=== PATIENT | female | born 1965 | race Caucasian/White ===

== ENCOUNTER 2021-11-24 18:47 | Inpatient (IN) | payer MEDICAID, OTHER ==
[~2021-11-24] VITALS: Ht 180.3 cm; Wt 107.0 kg
[2021-11-24] MEDS ORDERED: IV NS 0.9% 1,000 ML BAG IV ONE (19:30)
[2021-11-24] MEDS ORDERED: ONDANSETRON HCL/PF 4 MG/2 ML VIAL IVP ONE (19:30)
[2021-11-24 20:01] LABS: CALCIUM, SERUM 10.3 mg/dL (8.5-10.1); CARBON DIOXIDE 12 mmol/L (21-32); CHLORIDE 90 mmol/L (98-107); GLUCOSE 340 mg/dL (74-106); SODIUM SERUM 138 mmol/L (136-145); UREA NITROGEN, BLOOD 69 mg/dL (7-18)
[2021-11-24 20:06] LABS: CREATININE 9.4 mg/dL (0.6-1.3); POTASSIUM 2.7 mmol/L (3.5-5.1)
--- NOTE | 2021-11-24 20:06 | NUR ---
K 2.7
--- NOTE | 2021-11-24 20:09 | NUR ---
TROPONIN 89; DR. SANJAY WILHELM AWARE
--- NOTE | 2021-11-24 20:11 | NUR ---
URINE COLLECTED SENT TO LAB
[2021-11-24 20:12] LABS: ALANINE AMINOTRANSFERASE 53 U/L (12-78); ALBUMIN 4.2 g/dL (3.4-5.0); ALKALINE PHOSPHATASE 66 U/L (46-116); ASPARTATE AMINOTRANSFERASE 57 U/L (15-37); BILIRUBIN,DIRECT 0.2 mg/dL (0.0-0.2); BILIRUBIN,TOTAL 0.6 mg/dL (0.2-1.0); LIPASE 437 U/L (73-393)
[2021-11-24 20:21] LABS: BASOPHILS % (AUTO) 0.2 % (0.0-2.0); EOSINOPHILS % (AUTO) 0.3 % (0.0-6.0); HEMATOCRIT 47 % (33-45); HEMOGLOBIN 15.3 g/dL (11.5-14.8); LYMPHOCYTES # (AUTO) 1.8 K/uL (0.8-4.8); LYMPHOCYTES % (AUTO) 10.4 % (20.0-44.0); MEAN CORPUSCULAR HGB CONC 32 g/dl (31.0-36.0); MEAN CORPUSCULAR VOLUME 93 fL (82-100); MONOCYTES # (AUTO) 0.9 K/uL (0.1-1.30); MONOCYTES % (AUTO) 5.3 % (2.0-12.0); NEUTROPHILS # (AUTO) 14.9 K/uL (1.8-8.9); NEUTROPHILS % (AUTO) 83.8 % (43.0-81.0); PLATELET COUNT (AUTO) 330 K/uL (150-450); RED BLOOD CELL COUNT(AUTO) 5.11 MIL/uL (4.0-5.2); WHITE BLOOD COUNT (AUTO) 17.8 K/uL (4.3-11.0)
--- NOTE | 2021-11-24 20:23 | NUR ---
LACTIC 15.5
[2021-11-24 20:36] LABS: BILIRUBIN,URINE NEGATIVE (NEGATIVE); COLOR,URINE YELLOW (YELLOW); LEUKOCYTE ESTERASE ,URINE NEGATIVE (NEGATIVE); NITRITE, URINE NEGATIVE (NEGATIVE); PH,URINE 7.5 (5.0-8.0); PROTEIN,URINE NEGATIVE (NEGATIVE); UGLUCOSE NEGATIVE (NEGATIVE); UROBILINOGEN,URINE 0.2 EU/dL (0.2)
[2021-11-24] MEDS ORDERED: ONDANSETRON HCL/PF 4 MG/2 ML VIAL ONE (20:36)
[2021-11-24] MEDS ORDERED: POTASSIUM CHLORIDE 20 MEQ TAB.PRT.SR PO ONE (21:00)
[2021-11-24] MEDS: POTASSIUM CL. PREMIX PERIPHER. 50 ML IV SCH ×3 (21:01→23:53)
[2021-11-24] MEDS ORDERED: LISI20TA30 PO (21:16)
[2021-11-24] MEDS ORDERED: AMLO-212 PO (21:16)
[2021-11-24 21:17] LABS: CREATININE, URINE 116.1 MG/DL (30.0-125.0)
[2021-11-24 21:23] LABS: MAGNESIUM 4.3 mg/dL (1.8-2.4); PHOSPHORUS 8.8 mg/dL (2.5-4.9)
--- NOTE | 2021-11-24 21:37 | NUR ---
US AT BEDSIDE
--- NOTE | 2021-11-24 22:11 | NUR ---
SISTER, DENNIS [phone]
--- NOTE | 2021-11-24 22:18 | NUR ---
KIMBERLEY ON THE PHONE WITH FABIEN SHARPE
--- NOTE | 2021-11-24 23:03 | NUR ---
PER [employer] VERBAL AUTH TO DR ROYAL
[2021-11-24] MEDS ORDERED: POTASSIUM CL. PREMIX PERIPHER. 50 ML ONE (23:47)
[2021-11-25] VITALS (23 sets, daily range): BP systolic 80–128; BP diastolic 38–81
--- NOTE | 2021-11-25 00:15 | NUR ---
RN NOTES; PATIENT RECEIVED FROM ER WITH ROYAL IN RM 320-1,AAOX4 WITH 2L O2 VIA NC MALLORY WELL SATTING 97%,NO SIGN SOB/DISTRESS NOTED.BREATHING EVEN AND UNLABORE,NO COMPLAINED OF PAIN/DISCOMFORT AT THIS TIMES.IV ACCESS LEFT WRIST 18G PATENT AND INTACT,NO SWOLLEN/BLEEDING NOTED.PT WAS ORIENT THE RM AND VERBALIZE UNDERSTANDING.KEPT PT CLEANED AND DRY ALL TIME.SAFETY MEASURED INPLACE,CALL LIGHT WITHIN REACH.WILL CONTINUE TO MONITOR.
--- NOTE | 2021-11-25 00:24 | NUR ---
REPORT GIVEN TO COLTEN GRANT
[2021-11-25] MEDS ORDERED: POTASSIUM CL. PREMIX PERIPHER. 50 ML ONE (00:26)
--- NOTE | 2021-11-25 00:53 | NUR ---
PATIENT TRANSFERRED UNDER ACLS
[2021-11-25] MEDS: POTASSIUM CL. PREMIX PERIPHER. 50 ML IV SCH (01:04)
[2021-11-25] MEDS ORDERED: AMLO-212 PO (01:12)
[2021-11-25] MEDS ORDERED: ZOLPIDEM TARTRATE 5 MG TABLET PO PRN (04:30)
[2021-11-25] MEDS ORDERED: DEXTROSE 50%-WATER 50 ML DISP.SYRIN IV PRN (04:30)
[2021-11-25] MEDS ORDERED: *INSULIN REGULAR(HUMULIN R)HUM 100 UNIT/ML VIAL SQ PRN (04:30)
[2021-11-25] MEDS: ACETAMINOPHEN 325 MG TABLET PO PRN ×2 (04:42→10:37)
[2021-11-25] MEDS ORDERED: Potassium Chloride 10 MEQ in IV NS 0.9% 1,000 ML IV PRN (05:00)
--- NOTE | 2021-11-25 05:09 | NUR ---
RN NOTES; I TEXTED ZACH,GENNY REGARDING HIS ORDERED IVF NS + KCL 10MEQ @125ML/HR THAT IS NOT AVAILABLE ONLY AVAILABLE NS + KCL 20MEQ AND HE TEXTED BACK OK TO CHANGE.
[2021-11-25] MEDS ORDERED: Potassium Chloride 20 MEQ in IV NS 0.9% 1,000 ML IV PRN (05:30)
[2021-11-25] MEDS ORDERED: IV PREMIX NS +20MEQ KCL 1 L IV ONE (05:30)
[2021-11-25 05:41] LABS: ABG BASE EXCESS -9.1 mmol/L; ABG PCO2 34.3 mmHg (35.0-45.0); ABG PH 7.295 (7.350-7.450); ABG PO2 110.3 mmHg (75.0-100.0); COHb 0.2 % (0.5-1.5); MetHb 0.5 % (0.0-1.5); O2Hb 96.7 % (94.0-97.0); SITE, ABG Right Radial; VENT MODE, BG 3LNC
--- NOTE | 2021-11-25 06:24 | NUR ---
RN CLOSING NOTES; PATIENT IN BED SLEEPING BUT EASY TO AROUSED.AOX4 WITH 2L O2 VIA NC MALLORY WELL SATTING 96%,NO SIGN SOB/DISTRESS NOTED.BREATHING EVEN AND UNLABORE,DUE MEDS GIVING ORDER,ALL NEEDS ATTENDED,IV ACCESS LEFT WRIST 18G PATENT AND INTACT,SAFETY MEASURED INPLACE,CALL LIGHT WITHIN REACH.WILL ENDORSED TO NEXT SHIFT.
[2021-11-25 06:47] LABS: CALCIUM, SERUM 9.5 mg/dL (8.5-10.1); POTASSIUM 4.5 mmol/L (3.5-5.1)
[2021-11-25 06:53] LABS: BASOPHILS % (AUTO) 0.1 % (0.0-2.0); HEMATOCRIT 50 % (33-45); HEMOGLOBIN 16.6 g/dL (11.5-14.8); LYMPHOCYTES # (AUTO) 1.2 K/uL (0.8-4.8); LYMPHOCYTES % (AUTO) 4.5 % (20.0-44.0); MEAN CORPUSCULAR HGB CONC 33 g/dl (31.0-36.0); MEAN CORPUSCULAR VOLUME 92 fL (82-100); MONOCYTES # (AUTO) 2.1 K/uL (0.1-1.30); NEUTROPHILS # (AUTO) 23.2 K/uL (1.8-8.9); NEUTROPHILS % (AUTO) 87.4 % (43.0-81.0); PLATELET COUNT (AUTO) 328 K/uL (150-450); RED BLOOD CELL COUNT(AUTO) 5.48 MIL/uL (4.0-5.2); WHITE BLOOD COUNT (AUTO) 26.5 K/uL (4.3-11.0)
[2021-11-25] MEDS: INSULIN REGULAR, HUMAN 100 UNIT/ML 3 ML VIAL SQ PRN ×2 (06:56→12:51)
[2021-11-25] MEDS: BLOOD SUGAR DIAGNOSTIC 1 EACH STRIP VI SCH ×4 (06:57→21:26)
[2021-11-25 07:03] LABS: THYROID STIMULATING HORMONE 0.423 uIU/mL (0.358-3.74)
[2021-11-25] MEDS ORDERED: LISI1TAB55 PO (08:06)
[2021-11-25] MEDS ORDERED: IV NS 0.9% 1,000 ML IV ONE (08:30)
[2021-11-25] MEDS: Sodium Bicarbonate 100 MEQ in IV 1/2NS 1000 ML 1,000 ML IV SCH ×2 (12:19→21:38)
[2021-11-25] MEDS: PANTOPRAZOLE 40 MG VIAL IV SCH (12:20)
[2021-11-25] MEDS: HEPARIN SODIUM, PORCINE 5000 UNITS/1 ML VIAL SQ SCH ×2 (12:27→21:24)
[2021-11-25 13:56] LABS: POTASSIUM 4.7 mmol/L (3.5-5.1)
[2021-11-25 14:06] LABS: CREATININE 9.5 mg/dL (0.6-1.3)
--- NOTE | 2021-11-25 14:09 | NUR ---
RN NOTE RECEIVED CALL FROM LAB WITH CRITICAL VALUES; BUN 89, CREATININE 9.5, LACTIC 2.7. MD AND CHARGE NURSE AWARE.
--- NOTE | 2021-11-25 16:00 | NUR ---
RN NOTE- PT DIAPHORETIC, HYPOTENSIVE. REPORTED BP - 71/40. PT AOX4, INTERACTIVE/APPROPRIATE. VS - BP- 104/60 (MANUALLY), HR- 88, RR-18, O2 SATS 99%. ACCU-CHECK- BS-146. DR ROYAL NOTIFIED OF LABS VS AND CONDITION. ORDERS FOLLOWS. DECREASE IVF TO 75/HR, LASIX 20 MG IVP Q8H FOR TWO DOSES. FIRST DOSE STAT. COMPLIED. MONITORING
[2021-11-25] MEDS: FUROSEMIDE 20 MG/2 ML VIAL IV SCH ×2 (16:16→21:24)
--- NOTE | 2021-11-25 16:28 | NUR ---
RN NOTE- DR ROYAL ORDERED IVF TO BE AT 100/HR. COMPLIED. BLADDER SCAN DONE. PT RETAINING <150 CC / UA
--- NOTE | 2021-11-25 16:46 | NUR ---
RN NOTE LASIX 20MG Q8HR X TWO DOSES VIA IVP ORDERED. 1ST DOSE ADMINISTERED ON SHIFT. WILL CONTINUE TO MONITOR.
--- NOTE | 2021-11-25 17:00 | NUR ---
RN NOTE PATIENT RECEIVED IN BED AND AWAKE. A/O X4 AND ABLE TO VERBALIZE NEEDS. PATIENT OBSERVED TO BE WEAK AND UNABLE TO FULLY MOBILIZE WITHOUT ASSIST. INCONTINENT AT THIS TIME. REMAINS ON OXYGEN THERAPY, 2L VIA NASAL CANULA. NO MAJOR RESPIRATORY DISTRESS OBSERVED, HOWEVER BREATHING IS MILDLY LABORED WITH RESPIRATIONS @ 20 BREATHS PER MINUTE. IV ACCESS TO LEFT HAND REMAINS IN TACT WITH NO S/SX OF INFILTRATION. 1000ML IV BOLUS OF NS 0.9% GIVEN OVER 1HR ON SHIFT. CURRENTLY RECEIVING SODIUM BICARB @ 100ML/HR. @ 1600 PATIENT PRESENTED DIAPHORETIC & HYPOTENSIVE WITH BP MACHINE READING @ 71/40. PT REMAINED AOX4. MANUAL BP READING @ 104/60 (MANUALLY) HR 88 RR 18 O2 SATS 99% BS 146 DR ROYAL NOTIFIED OF LABS, VS AND CURRENT CONDITION.
--- NOTE | 2021-11-25 17:15 | NUR ---
RN NOTES RECEIVED PT FROM 3W IN ROOM 256 , PT IS DIAPHORETIC , OBESE, A/Ox4, SBP IN 70'S ,ON 2L O2 N/C , RESPIRATION EVEN AND UNLABORED ON TELE SR . LEFT HAND IV SITES CDI, DR ROYAL NOTIFIED REGARDING PT STATUS, NEW ORDER RECEIVED, PICC LINE CONSENT OBTAINED FROM PT , SR UP x3, CALL LIGHT WITHIN EASY REACH, BED LOCKED AND IN LOWEST POSITION, CONTINUE TO MONITOR.
[2021-11-25] MEDS: MIDODRINE HCL (5MG) 5 MG TABLET PO SCH (17:44)
--- NOTE | 2021-11-25 17:48 | NUR ---
RN NOTE 1720- PATIENT STATUS CONTINUED TO WORSEN. PATIENT TRANSFERRED OFF UNIT TO ICU, BED 256 VIA BED PER PHYSICIAN ORDERS. TRANSFER ACCOMPANIED BY DEVELOPMENT SPECIALIST AND CHARGE NURSE. REPORT GIVEN TO ICU NURSE AT BEDSIDE.
[2021-11-25] MEDS: NOREPINEPHRINE 8 MG in IV NS 0.9% 242 ML IV PRN ×2 (17:49→23:21)
--- NOTE | 2021-11-25 19:10 | NUR ---
INK BLENDER. RECEIVED THE PT REST IN BED. AWAKE, ALERT, FOLLOW COMMANDS. VERY LETHARGIC. BACK DIGGER OPERATOR SHOWING NSR. IV LT HAND INFILTRATED. SHIFT CHANGING TIME. PICC LINE NURSE CAME PLACED RT UPPER ARM PICC LINE. LEVOPHED AND BICARB DRIP CONNECTED TO THE PICC LINE. OXYGEN 2L VIA NASAL CANNULA. SAT 98%. NO ACUTE DISTRESS NOTED. WILL CONTINUE TO MONITOR VITALS.
--- NOTE | 2021-11-25 20:36 | NUR ---
MATERIALS PLANNER/PRODUCTION PLANNER. SMITH "S CATHETER 16 FG PLACED WITH OUT DIFFICULT. CONCENTRATED URINE DRAINING. WILL CONTINUE TO MONITOR VITALS.
[2021-11-25] MEDS: PIPERACILLIN /TAZOBACTAM 2.25 G in IV D5W 50 ML IV SCH (21:24)
[2021-11-25] MEDS ORDERED: IV NS 0.9% 250 ML IV PRN (21:30)
[2021-11-26] VITALS (80 sets, daily range): BP systolic 45–160; BP diastolic 18–112
[2021-11-26] MEDS ORDERED: NOREPINEPHRINE 8MG/250ML RTU 250 ML IV ONE (02:43)
[2021-11-26] MEDS: NOREPINEPHRINE 8 MG in IV NS 0.9% 242 ML IV PRN ×2 (02:46→06:35)
[2021-11-26] MEDS: Sodium Bicarbonate 100 MEQ in IV 1/2NS 1000 ML 1,000 ML IV SCH ×3 (03:00→17:49)
--- NOTE | 2021-11-26 03:08 | NUR ---
COOK HOUSE SUPERVISOR. AM CARE GIVEN. REMAINING SAME IVF ON. SAME OXYGEN TOLERATED WELL. SAT 98%. NO ACUTE DISTRESS NOTED. RECEIVING ROOM CLERK SHOWING NSR. IV RT UPPER ARM PICC ;LINE. LEVOPHED 0.3MCG/KG/MIN, BICARB DRIP 100 ML/H. FC PATENT. HOB ELEVATED. TURN AND REPOSITION Q2H. WILL CONTINUE TO MONITOR VITALS.
[2021-11-26 04:36] LABS: EOSINOPHILS % (AUTO) 0.1 % (0.0-6.0); HEMATOCRIT 49 % (33-45); HEMOGLOBIN 16.2 g/dL (11.5-14.8); LYMPHOCYTES # (AUTO) 1.2 K/uL (0.8-4.8); LYMPHOCYTES % (AUTO) 8.8 % (20.0-44.0); MEAN CORPUSCULAR HGB CONC 33 g/dl (31.0-36.0); MEAN CORPUSCULAR VOLUME 93 fL (82-100); MONOCYTES # (AUTO) 1.3 K/uL (0.1-1.30); MONOCYTES % (AUTO) 9.8 % (2.0-12.0); NEUTROPHILS # (AUTO) 10.7 K/uL (1.8-8.9); NEUTROPHILS % (AUTO) 81.3 % (43.0-81.0); PLATELET COUNT (AUTO) 272 K/uL (150-450); RED BLOOD CELL COUNT(AUTO) 5.33 MIL/uL (4.0-5.2); WHITE BLOOD COUNT (AUTO) 13.1 K/uL (4.3-11.0)
[2021-11-26 05:00] LABS: ALANINE AMINOTRANSFERASE 95 U/L (12-78); ALBUMIN 2.8 g/dL (3.4-5.0); ALKALINE PHOSPHATASE 165 U/L (46-116); ASPARTATE AMINOTRANSFERASE 139 U/L (15-37); BILIRUBIN,TOTAL 0.6 mg/dL (0.2-1.0); CALCIUM, SERUM 7.5 mg/dL (8.5-10.1); CARBON DIOXIDE 21 mmol/L (21-32); CHLORIDE 91 mmol/L (98-107); GLUCOSE 165 mg/dL (74-106); LIPASE 927 U/L (73-393); POTASSIUM 4.6 mmol/L (3.5-5.1); SODIUM SERUM 136 mmol/L (136-145); TOTAL PROTEIN, SERUM 6.9 g/dL (6.4-8.2)
[2021-11-26 05:02] LABS: CREATINE KINASE, TOTAL 5221 U/L (26-192)
[2021-11-26 05:16] LABS: CREATININE 10.7 mg/dL (0.6-1.3); UREA NITROGEN, BLOOD 106 mg/dL (7-18)
[2021-11-26] MEDS: PIPERACILLIN /TAZOBACTAM 2.25 G in IV D5W 50 ML IV SCH ×3 (05:58→23:20)
[2021-11-26] MEDS: FUROSEMIDE 20 MG/2 ML VIAL IV SCH ×2 (06:07→12:02)
[2021-11-26] MEDS ORDERED: FUROSEMIDE 20 MG/2 ML VIAL IV ONE (07:00)
[2021-11-26] MEDS ORDERED: FUROSEMIDE 20 MG/2 ML VIAL IV SCH (07:00)
--- NOTE | 2021-11-26 07:12 | NUR ---
GAMBLING FLOOR SUPERVISOR. ABNORMAL LAB RESULT NOTIFIED MD ROYAL. NEW ORDER RECEIVED.
[2021-11-26] MEDS: BLOOD SUGAR DIAGNOSTIC 1 EACH STRIP VI SCH ×4 (07:40→23:19)
[2021-11-26] MEDS: PANTOPRAZOLE 40 MG VIAL IV SCH (08:04)
[2021-11-26] MEDS: MIDODRINE HCL (5MG) 5 MG TABLET PO SCH ×3 (08:04→16:38)
[2021-11-26] MEDS: HEPARIN SODIUM, PORCINE 5000 UNITS/1 ML VIAL SQ SCH ×2 (08:06→21:15)
[2021-11-26] MEDS: INSULIN REGULAR, HUMAN 100 UNIT/ML 3 ML VIAL SQ PRN ×3 (08:07→16:46)
[2021-11-26] MEDS: NOREPINEPHRINE 32 MG in IV NS 0.9% 218 ML IV PRN ×3 (09:41→23:56)
--- NOTE | 2021-11-26 10:45 | NUR ---
SCIENTIFIC SOFTWARE DEVELOPER ABNORMAL LAB RESULTS RECEIVED, NOTIFIED DR. ROYAL, NEW ORDERED RECEIVED.
[2021-11-26] MEDS ORDERED: VANCOMYCIN 1 GM in IV D5W 250ml IV ONE (12:00)
--- NOTE | 2021-11-26 17:38 | NUR ---
ICU/RN EBER CUMMINGS PLACED HD CATH ON RIGHT IJ. PT A&OX4 THROUGHOUT PROCEDURE, DOES NOT REPORT ANY DISCOMFORT AT THIS TIME. STAT CXR ORDERED.
--- NOTE | 2021-11-26 20:00 | NUR ---
RN NOTE RECEIVED PT AOX4. ON O2 AT 4L SATING 93%. NOT IN ANY DISTRESS. PT DENIES ANY SOB OR PAIN AT THIS TIME. ON NA BICARB AT 100MLHR, LEVOPHED AT 0.7MCG/KG/MIN. BOTH INFUSING WELL ON SALOME PICC. RIJ INTACT, AWAITING FOR FOR HD. SMITH CATH IN PLACE. WILL CONTINUE TO MONITOR.
--- NOTE | 2021-11-26 21:30 | NUR ---
RN NOTE 1519 PT STARTED DIALYSIS. TOLERATING. DENIES ANY SOB OR PAIN OR DIZZINESS. WILL CONTINUE TO MONITOR.
--- NOTE | 2021-11-26 22:30 | NUR ---
RN NOTE 2204 NOTED PT BECOMES LETHARGIC, COLD TO TOUCH LOOKS PALE, O2 SAT DROPS TO 40S. PLACED ON NON REBREATHER, BREATHING SHALLOW, CALLED RT. STOPPED DIALYSIS. NOTIFIED DR ROYAL, RECEIVED AN ORDER FOR STAT ABG AND CHEST XRAY. 2214, PT NOW RESPONDS TO STIMULI, AND FOLLOWING COMMANDS. SKIN COLOR BACK TO NORMAL, PINK. FSBS 105. TACHYPNEIC. PT DENIES ANY SOB. STATED SHE FEELS OK.
--- NOTE | 2021-11-26 22:45 | NUR ---
RN NOTE PT O2 SAT AT 96% ON 15L NONREBREATHER. PT STATES SHE FEELS BETTER. DENIES ANY PAIN OR SOB. WILL CONTINUE TO MONITOR.
[2021-11-26] MEDS ORDERED: Sodium Bicarbonate 100 MEQ in IV 1/2NS 1000 ML 1,000 ML IV SCH (23:00)
[2021-11-26 23:59] LABS: ABG BASE EXCESS -10.6 mmol/L; ABG OXYGEN SATURATION 99.3 % (92.0-98.5); ABG PCO2 24.8 mmHg (35.0-45.0); ABG PH 7.337 (7.350-7.450); ABG PO2 244.8 mmHg (75.0-100.0); AaDO2 443.4 mmHg; COHb 1.1 % (0.5-1.5); MetHb 0.3 % (0.0-1.5); O2Hb 97.9 % (94.0-97.0); SITE, ABG Left Radial
[2021-11-27] VITALS: BP 73/45
[2021-11-27 00:15] VITALS: BP 94/23
[2021-11-27] MEDS ORDERED: KETAMINE HCL (500MG/10ML) 50 MG/ML VIAL ONE (00:15)
[2021-11-27 00:24] VITALS: BP 113/96
[2021-11-27 00:31] VITALS: BP 81/70
[2021-11-27 00:35] VITALS: BP 84/36
[2021-11-27 00:45] VITALS: BP 86/34
--- NOTE | 2021-11-27 01:05 | NUR ---
RN NOTE 0006 PT RESPONDS TO STIMULI, STATED SHE FEELS OK, PT TACHYPNEIC, PT DENIES ANY SOB OR ANY DIFFICULTY OF BREATHING, CHARGE NURSE AND RT AT BEDSIDE. SUDDENLY, PT BECOMES UNRESPONSIVE, AGONAL BREATHING, COLD CLAMMY SKIN, PALE. O2 SATURATION NOT READING. BP LOW, INCREASED LEVOPHED PER PROTOCOL. NOTIFIED DR ROYAL, CODE BLUE ACTIVATED. 0020 INTUBATED PT BY ER MD DR ALFONSO. 0030 CXRAY DONE, RN AND RT AT BEDSIDE 0035 PT RHYTHM ASYTOLE, PULSELESS, UNRESPONSIVE, CODE BLUE AGAIN ACTIVATED. ACLS INITIATED. 0056 ALL ACLS EFFORTS UNSUCCESSFUL, REMAIN PEA. DR ALFONSO PRONOUNCED . CHARGE NURSE NOTIFIED FAMILY, SISTER JAMILA. [address] ROYAL
--- NOTE | 2021-11-27 01:12 | NUR ---
RN NOTE ONE [facility] CASE NUM [id number].
[2021-11-27] MEDS ORDERED: SODIUM BICARBONATE SYR 50 MEQ/50 ML DISP.SYRIN IV ONE (04:16)
[2021-11-27] MEDS ORDERED: EPINEPHRINE (1:10,000) SYRINGE 1 MG/10 ML DISP.SYRIN IVP ONE ×2 (04:16)
[2021-11-27] MEDS ORDERED: Sodium Bicarbonate 50 MEQ/50 ML VIAL IV ONE (04:16)
[2021-11-27] MEDS ORDERED: CALCIUM CHLORIDE 1,000 MG/10 ML DISP.SYRIN IV ONE (04:16)
[2021-11-27] MEDS ORDERED: ROCURONIUM BROMIDE 50 MG/5 ML IV ONE (04:16)
[2021-11-27] MEDS ORDERED: Magnesium 1 GM/2 ML VIAL IV ONE ×2 (04:16)
[2021-11-27] MEDS ORDERED: PANTOPRAZOLE 40 MG TABLET.DR PO SCH (07:30)
[2021-11-29] MEDS ORDERED: VANCOMYCIN HCL 0.75 GM in IV D5W 250 ML IV SCH (12:00)
== END 2021-11-27 04:17 | DRG 815 ==
LOC: ER 18:50 → TELE 23:50 → ICU 11-25 17:13
PROVIDERS: ADMIT Internal Medicine; ATTEND Internal Medicine
PROC: 02HV33Z Insertion of Infusion Device into Superior Vena Cava, Percutaneous Approach (ICD-10-PCS; principal; 2021-11-25)
PROC: B548ZZA Ultrasonography of Superior Vena Cava, Guidance (ICD-10-PCS; 2021-11-25)
PROC: 06HY33Z Insertion of Infusion Device into Lower Vein, Percutaneous Approach (ICD-10-PCS; 2021-11-26)
PROC: 5A1D70Z Performance of Urinary Filtration, Intermittent, Less than 6 Hours Per Day (ICD-10-PCS; 2021-11-26)
PROC: 0BH17EZ Insertion of Endotracheal Airway into Trachea, Via Natural or Artificial Opening (ICD-10-PCS; 2021-11-27)
PROC: 5A2204Z Restoration of Cardiac Rhythm, Single (ICD-10-PCS; 2021-11-27)
DX: T67.01XA Heatstroke and sunstroke, initial encounter (principal); N17.0 Acute kidney failure with tubular necrosis; J96.91 Respiratory failure, unspecified with hypoxia; A41.9 Sepsis, unspecified organism; K85.90 Acute pancreatitis without necrosis or infection, unspecified; E87.2 Acidosis; M62.82 Rhabdomyolysis; E86.0 Dehydration; E87.0 Hyperosmolality and hypernatremia; I10 Essential (primary) hypertension; Z79.899 Other long term (current) drug therapy; Y92.9 Unspecified place or not applicable; E66.9 Obesity, unspecified; Z68.32 Body mass index [BMI] 32.0-32.9, adult; X30.XXXA Exposure to excessive natural heat, initial encounter; Z20.822 Contact with and (suspected) exposure to COVID-19
CPT/HCPCS: 36415; 36600; 71045-TC; 76770-TC; 80048-TC; 80053-TC; 80076-TC; 82550-TC; 82553; 82570-TC; 82803-TC; 82962-TC; 83605-TC; 83690-TC; 83735-TC; 84100-TC; 84300-TC; 84443-TC; 84484-TC; 84703-TC; 85025-TC; 86706; 87040-TC; 87086-TC; 87340; 90935-TC; 92950-TC; 94002-TC; 94799-TC; C9113; C9803; G0378; J0171; J1644; J1815; J1940; J2405; J2543; J3370; J3475; J3480; J3490; J7030; J7040; J7050; J7060